=== PATIENT | female | born 1940 | race Caucasian/White ===

== ENCOUNTER 2022-05-22 15:18 | Inpatient (IN) | payer OTHER ==
[~2022-05-22] VITALS: Ht 172.7 cm; Wt 66.5 kg
[2022-05-22 15:23] VITALS: BP 142/86
[2022-05-22] MEDS ORDERED: NACL 0.9% 1,000 ML IV ONE (15:25)
[2022-05-22 15:46] LABS: BASOPHILS % (AUTO) 0.5 % (0.0-2.0); EOSINOPHILS # (AUTO) 0.1 K/uL (0-0.4); EOSINOPHILS % (AUTO) 1.3 % (0.0-4.0); HEMATOCRIT 39.1 % (36-48); HEMOGLOBIN 12.8 g/dL (12.0-16.0); LYMPHOCYTES # (AUTO) 2.6 K/uL (2.5-16.5); LYMPHOCYTES % (AUTO) 41.6 % (20.5-51.1); MEAN CORPUSCULAR HEMOGLOBIN 27 pg (27-31); MEAN CORPUSCULAR HGB CONC 33 g/dL (33-37); MEAN CORPUSCULAR VOLUME 82.1 fL (80-94); MONOCYTES # (AUTO) 0.3 K/uL (0.8-1.0); MONOCYTES % (AUTO) 5.4 % (1.7-9.3); NEUTROPHILS # (AUTO) 3.2 K/uL (1.8-7.7); NEUTROPHILS % (AUTO) 51.2 % (42.2-75.2); PLATELET COUNT (AUTO) 144 K/uL (140-450); RED BLOOD CELL COUNT(AUTO) 4.76 MIL/uL (4.20-5.40); RED CELL DISTRIBUTION WIDTH 16.6 % (11.6-13.7); WHITE BLOOD COUNT (AUTO) 6.2 K/uL (4.8-10.8)
[2022-05-22 16:09] LABS: ALBUMIN 3.6 g/dL (3.4-5.0); ANION GAP 13.5 (8-16); ASPARTATE AMINOTRANSFERASE 21 U/L (15-37); CARBON DIOXIDE 22.3 mmol/L (21-32); CHLORIDE 106 mmol/L (98-107); GLUCOSE 122 mg/dL (74-106); POTASSIUM 3.8 mmol/L (3.5-5.1); SODIUM SERUM 138 mmol/L (136-145); TOTAL BILIRUBIN 0.5 mg/dL (0.0-1.0); UREA NITROGEN, BLOOD 30 mg/dL (7-18)
[2022-05-22] MEDS ORDERED: ASPIRIN 325 MG TAB PO ONE (17:00)
[2022-05-22] MEDS ORDERED: hePARIN / DEXT 5% PREMIX 250 ML IV SCH (17:50)
[2022-05-22] MEDS ORDERED: HEPARIN PER PHARMACY MC PRN ×2 (17:50)
[2022-05-22 18:35] LABS: PROTHROMBIN TIME 10.8 secs (10.8-13.4)
[2022-05-22 19:13] LABS: APPEARANCE,URINE CLEAR (CLEAR); BILIRUBIN,URINE NEGATIVE (NEGATIVE); BLOOD, URINE TRACE-I (NEGATIVE); COLOR,URINE YELLOW (YELLOW); LEUKOCYTE ESTERASE ,URINE NEGATIVE (NEGATIVE); NITRITE, URINE NEGATIVE (NEGATIVE); UGLUCOSE NEGATIVE (NEGATIVE)
--- NOTE | 2022-05-22 19:16 | NUR ---
Received report from JERRELL Flores and continue care of patient.
[2022-05-22] MEDS ORDERED: QUET25TA46 PO (19:23)
[2022-05-22 19:30] LABS: RBC,URINE 0-5 /HPF (0-5); WBC,URINE 0-5 /HPF (0-5)
[2022-05-22] MEDS ORDERED: ASPIRIN 325 MG TAB ONE (20:01)
[2022-05-22] MEDS ORDERED: ERGO-30 PO (20:10)
[2022-05-22] MEDS ORDERED: [UNRECOGNIZED DRUG - OTHER] TP (20:10)
[2022-05-22] MEDS ORDERED: METH1TAB50 PO (20:10)
[2022-05-22] MEDS ORDERED: ATOR20TA PO (20:10)
[2022-05-22] MEDS ORDERED: QUET25TA PO (20:10)
[2022-05-22] MEDS ORDERED: ACET-9520 PO (20:10)
--- NOTE | 2022-05-22 20:10 | NUR ---
Med-rec reviewed.
--- NOTE | 2022-05-22 20:14 | NUR ---
Spoke with patient's family for update admission room.
--- NOTE | 2022-05-22 20:49 | NUR ---
attempt to contact JERRELL Garrett for xfer report. request call back in 10 minutes.
--- NOTE | 2022-05-22 21:09 | NUR ---
Patient will be admitted to care of Dr. Pandey. Admited to telemetry. Will go to room 122B. Belongings list completed. Report to JERRELL Garrett.
--- NOTE | 2022-05-22 21:10 | NUR ---
2109: INITIAL ER TRANSFER REPORT VIA PHONE FROM ER NURSE DEEPA RN TO XAVI TURK RN REPORTED: 82 YO FEMALE FOR ADMISSION UNDER MD [facility] WITH NEAR SYNCOPAL EPISODE. SLID DOWN AND ASSISTED TO FLOOR AT [facility]. DX: ELEVATED TROPONIN AND GENERALIZED WEAKNESS. HEPARIN DRIP REPORTED INFUSING AT "60 UNITS/KG/HR" WITH A BOLUS OF 5000 UNITS GIVEN PRIOR TO ARRIVAL. NKA. HX OF DEMENTIA AND HTN. STANDARD PRECAUTIONS, COVID NEGATIVE, A/OX4, SINUS RHYTHM 74, LUNGS CLEAR, ON ROOM AIR, SATS 74. MEDS ARE STATINS AND VITAMINS. CONTINENT OF BOWEL AND BLADDER, SKIN INTACT. ASKED IF HEPARIN GTT WAS PER PROTOCOL. HELD ON WHILE NURSE ASKED ANOTHER NURSE NEXT TO HER. COULD HEAR HER ANSWER "YES IT IS." SHE THEN RELAYED TO ME IT IS PER PROTOCOL". I THEN ASKED HER WHEN WAS THE FIRST DRAW FOR PTT. SHE ASKED ME TO HOLD ON AGAIN AND ASKED THE SAME VOICE WHEN WAS THE PTT DRAW. THAT VOICE WAS HEARD SAYING "THEY CAN LOOK IT UP ON THE FLOOR"... "BUT HERE HERE LET'S SEE...OK IT WAS 1535 AND THEY CAN COUNT FROM THERE 6 HOURS." HEARD NURSE BEGIN TO COUNT OUT LOUD TO QUESTIONING NURSE "1535, 1635, 1735, 1835, 1935, 2035, 2135. SO THE NEXT PTT DRAW WILL BE 2135". THE REPORTING NURSE GITA RETURNED TO THE PHONE STATED THE NEXT DRAW WILL BE 2135. I, THANKED REPORTING NURSE FOR THIS AND STATED BECAUSE IT IS HEPARIN IT WAS IMPORTANT TO GET THE TIME OF DRAW CORRECT FOR CONTINUITY AND SAFETY. SHE PROCEEDED TO SAY "THANK YOU BECAUSE THIS IS MY FIRST DAY AND I AM LEARNING TOO" I THEN QUESTIONED HER ON THE RATE AGAIN. "SHE STATED 60 UNITS/KG/HR". THANKED REPORTING NURSE. END OF CALL.
[2022-05-22 21:23] VITALS: BP 140/72
--- NOTE | 2022-05-22 21:23 | NUR ---
2122: PT RECEIVED TO ROOM 122B VIA [place] ACCOMPANIED BY DAUGHTER. REQUESTED DAUGHTER TO STAY BRIEFLY FOR ACCURATE HX IN VIEW OF DEMENTIA DX OF PT. STATED SHE WOULD BRIEFLY STAY. ONCE PT TRANSFERRED, IMMEDIATELY BEGAN OBTAINING INFO FROM DAUGHTER WHILE ER TRANSPORT REMOVED TRANSFER COVERS AND ADJUSTED PATIENT BECAUSE BED LOST ALL ELECTRICITY POWER FOR A BRIEF SPELL. THEY WERE WORKING ON THE PROBLEM I BEGAN TO GO THRU THE HX QUESTIONS WITH DAUGHTER. I JOINED THE NURSES TO TROUBLE SHOOT THE ELECTRIC PROBLEM AND SWITCHED WALL SOCKETS AND THE BED LIGHTS CAME ON AND POWER WAS RESTORED. ER PERSONNEL THEN EXITED THE ROOM. UPON NOTING THE HEPARIN BAG I REALIZED THE BAG LOOKED BRAND NEW AND WAS CLAMPED. UPON FINISHING THE BRIEF HX DAUGHTER EXITED. I THEN CALLED ER TO SPEAK WITH GITA CONCERNING THE HEPARIN DRIP ON BETTY IN 122B. A VOICE CAME TO THE PHONE AND IDENTIFIED THEMSELVES VARINDER. I STATED I NEEDED MORE CLARIFICATION ON THE RATE OF THE HEPARIN GTT. A NURSE BY THE NAME OF VARINDER PROCEEDED TO STATE THAT "PHARMACY WANTS TO USE THE LOW DOSE OF 60 INSTEAD OF 80 WITH HER..... " I ASKED HOW MANY MLS PER HOUR DID THEY HAVE IT RUNNING AT IN ER. SHE STATED THE PUMPS WOULD AUTOMATICALLY CALCULATE IT WITH THE INFORMATION GIVEN. CALL ENDED. IT WAS AT THIS TIME THAT I APPROACHED MY CHARGE NURSE VARSHA IN ASSISTING ME IN SETTING AND UNDERSTANDING THE PROPER DOSE FOR THIS HEPARIN DRIP.
--- NOTE | 2022-05-22 22:51 | NUR ---
214: VARSHA CALCULATED HEPARIN GTT BASED EXCLUSIVELY ON PHARMACY WRITTEN ORDER WHICH YIELDED A RATE OF 800 UNITS/KG/HR OR 8ML/HR. 2250: PTT 116.9 HEPARIN GTT REDUCED 200 UNITS AND TURNED OFF1 HOUR PER PROTOCOL 2351: HEPARIN GTT TURNED ON @ 600 UNIT/KG/HR OR 6ML/HR. NEXT PTT DRAW SCHEDULED FOR 550
[2022-05-22] MEDS: hePARIN / DEXT 5% PREMIX 250 ML IV SCH (23:54)
[2022-05-23] VITALS: BP 131/77
[2022-05-23] MEDS ORDERED: HYDROcodone/APAP 7.5/325 MG 1 TAB PO PRN (02:00)
[2022-05-23] MEDS ORDERED: ACETAMINOPHEN 325 MG TAB PO PRN (02:00)
[2022-05-23] MEDS ORDERED: ONDANSETRON 4 MG/2 ML VIAL IVP PRN (02:00)
[2022-05-23] MEDS ORDERED: MAG SULF 2000 MG/WATER PREMIX 50 ML IV PRN (02:00)
[2022-05-23] MEDS ORDERED: MECLIZINE 25 MG TAB PO PRN (02:00)
[2022-05-23] MEDS ORDERED: POTASSIUM CHLORIDE 10 MEQ TABER PO PRN (02:00)
[2022-05-23 04:00] VITALS: BP 136/68
--- NOTE | 2022-05-23 05:40 | NUR ---
LAB ON FLOOR AND JUANA PTT AT THIS TIME. PT RESTING WITH NO SIGNS OR SYMPTOMS OF BLEEDING.
[2022-05-23 06:39] LABS: CHOL/HDL RATIO 2.4 (1-4.5); FREE T4 (FREE THYROXINE) 1.01 ng/dL (0.76-1.46); MAGNESIUM 1.9 mg/dL (1.8-2.4); PHOSPHORUS 3.9 mg/dL (2.5-4.9); THYROID STIMULATING HORMONE 1.09 uIU/mL (0.34-3.74)
[2022-05-23 06:58] LABS: BASOPHILS % (AUTO) 0.5 % (0.0-2.0); EOSINOPHILS # (AUTO) 0.2 K/uL (0-0.4); HEMATOCRIT 39.2 % (36-48); HEMOGLOBIN 12.8 g/dL (12.0-16.0); LYMPHOCYTES # (AUTO) 4.2 K/uL (2.5-16.5); LYMPHOCYTES % (AUTO) 52.2 % (20.5-51.1); MEAN CORPUSCULAR HEMOGLOBIN 27 pg (27-31); MEAN CORPUSCULAR HGB CONC 33 g/dL (33-37); MEAN CORPUSCULAR VOLUME 82.2 fL (80-94); MONOCYTES # (AUTO) 0.6 K/uL (0.8-1.0); NEUTROPHILS # (AUTO) 3.1 K/uL (1.8-7.7); NEUTROPHILS % (AUTO) 38.3 % (42.2-75.2); PLATELET COUNT (AUTO) 151 K/uL (140-450); RED BLOOD CELL COUNT(AUTO) 4.77 MIL/uL (4.20-5.40); RED CELL DISTRIBUTION WIDTH 16.9 % (11.6-13.7)
[2022-05-23 08:00] VITALS: BP 144/54
--- NOTE | 2022-05-23 08:19 | NUR ---
PATIENT IS AN ADMISSION FROM [facility] UNDER THE CARE OF DOCTOR MENON AFTER NEAR SYNCOPE WITH ASSIST TO GROUND BY A STAFF MEMBER. SHE HAS A PRIMARY DIAGNOSIS OF ELEVATED TROPONIN AND SECONDARY DIAGNOSIS OF GENERALIZED WEAKNESS. SHE WANTS TO SEE HER DAUGHTER BECAUSE SHE SAYS SHE IS WET AND NEEDS CLOTHES. EDUCATION ABOUT CHANGING UNDERPADS AND CHANGE OF GOWN AND UNDERPAD WITH PERINEAL CARE. DAUGHTER OF PATIENT SILVIO SAYS SHE WILL COME TO HOSPITAL LATER TO BRING A CHANGE OF CLOTHES. EDUCATION TO PATIENT CLOTHES WILL BE USED FOR DISCHARGE AND GOWN WHILE AT THE HOSPITAL. Addendum: 05/23/22 at 0848 by Agency 03 JERRELL ALLAN Amended: Links added.
[2022-05-23] MEDS ORDERED: EMU OIL TP SCH (09:00)
[2022-05-23] MEDS ORDERED: METHENAMINE HIPPURATE PO SCH (09:00)
[2022-05-23] MEDS ORDERED: ACETAMINOPHEN 325 MG PO SCH (09:00)
[2022-05-23] MEDS ORDERED: ERGOCALCIFEROL 50,000 IU SGL PO SCH (09:00)
[2022-05-23] MEDS ORDERED: [UNRECOGNIZED DRUG - OTHER] TP SCH (09:00)
[2022-05-23] MEDS ORDERED: MSM TP SCH (09:00)
[2022-05-23] MEDS: PANTOPRAZOLE 40 MG INJ VIAL IVP SCH (09:13)
[2022-05-23] MEDS: DOCUSATE SODIUM 100 MG GELCAP PO SCH ×2 (09:13→21:00)
[2022-05-23] MEDS: QUEtiapine FUMARATE 25 MG TAB PO SCH (09:13)
--- NOTE | 2022-05-23 09:23 | NUR ---
PATIENT HAS BEEN SCREENED AND CATEGORIZED LOW NUTRITION RISK. PATIENT WILL BE SEEN WITHIN 7 DAYS OF ADMISSION. 05/29/22 REVIEWED BY LEONCIO ROCHA RD
[2022-05-23] MEDS: hePARIN / DEXT 5% PREMIX 250 ML IV SCH (09:26)
[2022-05-23 11:17] LABS: CARBON DIOXIDE 28.4 mmol/L (21-32); CHLORIDE 106 mmol/L (98-107); GLUCOSE 157 mg/dL (74-106); POTASSIUM 3.4 mmol/L (3.5-5.1); SODIUM SERUM 140 mmol/L (136-145); UREA NITROGEN, BLOOD 25 mg/dL (7-18)
[2022-05-23 12:00] VITALS: BP 165/71
--- NOTE | 2022-05-23 13:07 | NUR ---
DC PLANNING: CALLED [facility] [phone] LEFT A MESSAGE FOR PATIENT STATUS. CM TO FOLLOW Addendum: 05/24/22 at 0911 by Mary Carmen Gonzalez RN DC PLANNING: [facility] [phone] SPOKE WITH JUVE DAVIS PT'S CLINICAL. SHE STATED DIDN'T RECEIVE ANY PAPERWORK CM CLARIFIED THE FAX NUMBER [phone] CM FAXED AGAIN H&P AND FACE SHEET. CM TO FOLLOW Addendum: 05/24/22 at 1448 by Mary Carmen Gonzalez RN DC PLANNING: IM LETTER DISCUSSED WITH THE SON KEVIN ANGUIANO VIA TELEPHONE AND SIGNED
--- NOTE | 2022-05-23 14:54 | NUR ---
PATIENT REFUSES POTASSIUM REPLACEMENT AND PULLS OUT OWN IV. NEW IV 24 GAUGE PLACEMENT IN LEFT FOREARM. PHYSICAL THERAPY PRESENT FOR EVALUATION.
[2022-05-23 16:00] VITALS: BP 139/57
--- NOTE | 2022-05-23 19:30 | NUR ---
PM NURSES NARRATIVE (OPENING) 1930 HAND-OFF REPORT RECEIVED FROM SHANEL ALLAN DAY NURSE FOLLOWING BEDSIDE ROUNDS. REPORTED: PULLED OUT IV. 24 GA TO RFA/SL. SERINA GTT D/C'd. OOB POOPED ALL OVER FLOOR COOPIOUS AMT OF STOOL. CLEANED AND ASSISTED BACK TO BED. 2 D ECHO OF BIAL CAROTIDS DONE. PT EVAL DONE. ORTHOSTATIC HYPOTENSIVE WITH AMBULATION. PT RECEIVED SLEEPING A/O X1 ASSUMED CARE OF PT AT THIS TIME.
[2022-05-23 20:00] VITALS: BP 137/49
[2022-05-23] MEDS ORDERED: ATORVASTATIN 20 MG TAB PO SCH (21:00)
--- NOTE | 2022-05-24 01:00 | NUR ---
BED ALARM SOUNDED. PT FOUND WALKING AND POOPING A COPIOUS AMT OF NON-STOP SOFT STOOL. ASSISTED TO FLOOR THEN CHAIR. NO FALLING. CLEANED PT AND ROOM. BACK TO BED. ALARM ARMED. COMPLIANT REMAINDER OF NIGHT. NO BRUISES OR INJURY
[2022-05-24 04:00] VITALS: BP 126/76
[2022-05-24 06:51] LABS: ANION GAP 11.4 (8-16); CARBON DIOXIDE 27.7 mmol/L (21-32); CHLORIDE 107 mmol/L (98-107); CREATININE 0.9 mg/dL (0.6-1.3); GLUCOSE 149 mg/dL (74-106); POTASSIUM 4.1 mmol/L (3.5-5.1); SODIUM SERUM 142 mmol/L (136-145); UREA NITROGEN, BLOOD 28 mg/dL (7-18)
[2022-05-24 06:54] LABS: BASOPHILS % (AUTO) 0.2 % (0.0-2.0); EOSINOPHILS # (AUTO) 0.1 K/uL (0-0.4); EOSINOPHILS % (AUTO) 0.8 % (0.0-4.0); HEMATOCRIT 39.7 % (36-48); HEMOGLOBIN 12.9 g/dL (12.0-16.0); LYMPHOCYTES # (AUTO) 1.9 K/uL (2.5-16.5); LYMPHOCYTES % (AUTO) 20.2 % (20.5-51.1); MEAN CORPUSCULAR HEMOGLOBIN 27 pg (27-31); MEAN CORPUSCULAR HGB CONC 32 g/dL (33-37); MEAN CORPUSCULAR VOLUME 82.1 fL (80-94); MONOCYTES # (AUTO) 0.6 K/uL (0.8-1.0); MONOCYTES % (AUTO) 6.4 % (1.7-9.3); NEUTROPHILS # (AUTO) 6.7 K/uL (1.8-7.7); NEUTROPHILS % (AUTO) 72.4 % (42.2-75.2); PLATELET COUNT (AUTO) 149 K/uL (140-450); RED BLOOD CELL COUNT(AUTO) 4.83 MIL/uL (4.20-5.40); RED CELL DISTRIBUTION WIDTH 17.1 % (11.6-13.7); WHITE BLOOD COUNT (AUTO) 9.2 K/uL (4.8-10.8)
[2022-05-24 07:04] LABS: PHOSPHORUS 3.5 mg/dL (2.5-4.9)
--- NOTE | 2022-05-24 07:30 | NUR ---
PM HAND-OFF TO DAY SHIFT SAME RETURNING NURSE SHANEL RECEIVED PT. UPDATED WITH ABOVE EVENT. RELINQUISHED CARE OF PT AT THIS TIME.
[2022-05-24 08:00] VITALS: BP 155/66
[2022-05-24] MEDS: DOCUSATE SODIUM 100 MG GELCAP PO SCH (08:49)
[2022-05-24] MEDS: QUEtiapine FUMARATE 25 MG TAB PO SCH (08:52)
[2022-05-24] MEDS: PANTOPRAZOLE 40 MG INJ VIAL IVP SCH (09:00)
--- NOTE | 2022-05-24 12:53 | NUR ---
INTACT 24 GAUGE INTRAVENOUS CATHETER TIP PRESENT UPON DISCHARGE. ALL BELONGINGS AND A COPY OF DISCHARGE INSTRUCTION SENT WITH PATIENT FOR HOME/[facility]ERLY [facility] TRANSPORT WITH DAUGHTER VIA PRIVATE AUTO.
== END 2022-05-24 12:40 | disposition home or self-care (01) | DRG 640 ==
LOC: MED 15:18 → MTU 17:57
DX: E86.0 Dehydration (principal); I21.A1 Myocardial infarction type 2; R79.89 Other specified abnormal findings of blood chemistry; D70.9 Neutropenia, unspecified; E78.5 Hyperlipidemia, unspecified; Z20.822 Contact with and (suspected) exposure to COVID-19; F03.90 Unspecified dementia, unspecified severity, without behavioral disturbance, psychotic disturbance, mood disturbance, and anxiety; Z79.1 Long term (current) use of non-steroidal anti-inflammatories (NSAID); Z87.440 Personal history of urinary (tract) infections; Z79.899 Other long term (current) drug therapy
CPT/HCPCS: 36415; 70450; 71045; 80048; 80053; 81001; 82140; 82150; 83036; 83605; 83690; 83735; 83880; 84100; 84439; 84443; 84484; 85025; 85610; 85730; 87040; 87081; 93005; 93880; 96361; 96374; 97112; 97163-GP; 97530; 99291; C9113; J1644; J8597; Q0092